=== PATIENT | female | born 1945 | race Caucasian/White ===

== ENCOUNTER 2017-07-14 08:09 | Outpatient (CLI) | payer MEDICARE, OTHER ==
--- NOTE | 2017-07-14 11:51 | NM ---
NUCLEAR MEDICINE CARDIAC MYOCARDIAL PERFUSION SPECT EJECTION FRACTION STUDY WALL MOTION CINE: HISTORY: 71-year-old female with chest pain. TECHNIQUE: Number of days: 1 Rest study: Tc99m sestamibi (Cardiolite) dose: 10.3 mCi Pharmacologic stress: adenosine dose: 35.8 mg Stress study: Tc99m sestamibi (Cardiolite) dose: 31.0 mCi FINDINGS: CARDIAC (MYOCARDIAL PERFUSION) SPECT There are no reversible myocardial perfusion defects. EJECTION FRACTION STUDY EF = 73% WALL MOTION CINE Normal. IMPRESSION: No evidence of reversible ischemia. FREDDIE Salgado POS: [facility]
[2017-07-14] MEDS ORDERED: ADENOSINE 60 MG/20 ML VIAL ONE (15:53)
== END 2017-07-14 08:10 | disposition home or self-care (01) ==
LOC: NM 08:09
PROVIDERS: ATTEND Internal Medicine
DX: R07.9 Chest pain, unspecified (principal)
CPT/HCPCS: 78452; 93017; A9500; J0153

== ENCOUNTER 2017-10-21 12:42 | Outpatient (CLI) | payer MEDICARE, BC ==
--- NOTE | 2017-10-21 15:40 | MRI ---
MR OF THE LEFT HINDFOOT WITHOUT CONTRAST: 10/21/17 INDICATION: Left foot pain from midfoot to heel. FINDINGS: There is abnormal edema surrounding the medial plantar fascial band as well as the underlying heel pa d consistent with plantar fasciitis. There is moderate enthesopathic change off of the calcaneus. No acute fracture is evident. The ATFL, PTFL, calcaneofibular, deltoid and syndesmotic ligaments are int act. No osteochondral lesion is evident. The sinus tarsi has a normal signal intensity. The Achilles, peroneal, medial flexor and extensor tendons appear within normal limits. IMPRESSION: Mild to moderate plantar fasciitis of the medial plantar band. POS: [facility]
== END 2017-10-21 12:43 | disposition home or self-care (01) ==
LOC: SCSMRI 12:42
PROVIDERS: ATTEND Podiatrist
DX: S92.215D Nondisplaced fracture of cuboid bone of left foot, subsequent encounter for fracture with routine healing (principal); M76.72 Peroneal tendinitis, left leg; M79.672 Pain in left foot; M72.2 Plantar fascial fibromatosis